=== PATIENT | female | born 1945 | race Caucasian/White ===

== ENCOUNTER 2017-01-09 09:42 | Emergency (ER) | payer MEDICARE, BC ==
[2016-01-24 10:00] VITALS: BMI 35.0
[~2017-01-09 09:42] MED LIST: ADVIL200 MG PO; COREG PO; COREG12.5 MG PO; COUMADIN5 MG PO; GABAPENTIN PO; GLYBURIDE5 M1; GLYBURIDE5 M1 PO; HCTZ PO; HYDROCHLOROTHIA25 MG PO; MULTIPLE VITAMI1 TA1 PO; NEURONTIN 300300 MG PO; OMEPRAZOLE20 M1 PO; TRAMADOL PO; ULTRAM50 MG PO
== END 2017-01-09 11:36 | disposition home or self-care (01) ==
LOC: D.ER 09:42
DX: K59.00 Constipation, unspecified (principal); K56.41 Fecal impaction; K61.0 Anal abscess; R10.9 Unspecified abdominal pain

== ENCOUNTER → 2017-01-26 11:30 | Outpatient (CLI) | payer MEDICARE, BC ==
[2016-01-24 10:00] VITALS: BMI 35.0
== END | disposition home or self-care (01) ==
LOC: D.NM 11:30
DX: K92.2 Gastrointestinal hemorrhage, unspecified (principal)

== ENCOUNTER 2017-02-15 08:03 | Emergency (ER) | payer MEDICARE, BC ==
[2016-01-24 10:00] VITALS: BMI 35.0
[2017-02-15 08:43] LABS: BASOPHILS 0.3 % (0-2); EOSINOPHILS 2.1 % (0-7); HEMOGLOBIN 11.6 g/dL (12-16); IMMATURE GRANULOCYTES 0.3 % (0-5); LYMPHOCYTES 20.7 % (15-50); MCH 30.2 pg (26.0-34.0); MCHC 33.1 g/dL (31.0-37.0); MCV 91.1 fL (80.0-100.0); MEAN PLATELET VOLUME 9.7 fL (7.4-10.4); NEUTROPHILS 67.6 % (40-80); RBC 3.84 10x6/uL (4.00-5.40); RDW 13.2 % (11.5-14.5); WBC 13.1 10x3/uL (4.8-10.8)
[2017-02-15 08:56] LABS: PLATELET COUNT 725 10x3/uL (130-400)
[2017-02-15 08:58] LABS: INR 1.81 (0.85-1.17); PROTIME 20.9 SECONDS (11.6-15.0)
[2017-02-15 09:09] LABS: ALKALINE PHOSPHATASE 44 U/L (46-116); ALT (SGPT) 17 U/L (10-68); BILIRUBIN - TOTAL 0.32 mg/dL (0.2-1.3); CALC OSMOLALITY 265 mosm/kg (275-300); CALCIUM 8.3 mg/dL (8.5-10.1); CARBON DIOXIDE 31.6 mmol/L (21.0-32.0); CHLORIDE - SERUM 93 mmol/L (98-107); CREATININE - SERUM 1.1 mg/dL (0.6-1.3); GLUCOSE 136 mg/dL (74-106); POTASSIUM - SERUM 3.8 mmol/L (3.5-5.1); PROTEIN - SERUM 7.4 g/dL (6.4-8.2); SODIUM 130 mmol/L (136-145); UREA NITROGEN 21 mg/dL (7-18); eGFR NON AFRICAN AMERICAN 52 mL/min (90-120)
[2017-02-15 09:12] LABS: CREATINE KINASE 45 UL (21-215); TROPONIN-I < 0.017 ng/mL (0.000-0.060)
[2017-02-15 10:33] LABS: APPEARANCE CLEAR (CLEAR); BILIRUBIN NEGATIVE (NEGATIVE); COLOR YELLOW (YELLOW); GLUCOSE NEGATIVE (NEGATIVE); KETONE NEGATIVE (NEGATIVE); LEUKOCYTE ESTERASE TRACE (NEGATIVE); NITRITE NEGATIVE (NEGATIVE); PROTEIN NEGATIVE (NEGATIVE); UROBILINOGEN NORMAL (NORMAL)
[2017-02-15 10:34] LABS: BACTERIA FEW /hpf (NONE SEEN); EPITHELIAL CELLS 0-5 /hpf (0-5); MUCUS <1+ /lpf (NONE SEEN); WHITE CELLS - URINE OCC /hpf (0-5)
== END 2017-02-15 11:00 | disposition home or self-care (01) ==
LOC: D.ER 08:03
PROVIDERS: Emergency Medicine
DX: R42 Dizziness and giddiness (principal); I95.9 Hypotension, unspecified; I44.7 Left bundle-branch block, unspecified

== ENCOUNTER 2017-08-09 11:39 | Day surgery (SDC) | payer MEDICARE, BC ==
--- NOTE | ~2017-08-09 | OP ---
PATIENT NAME: ÁNGEL BABCOCK MEDICAL RECORD: [id number] :43 LOCATION:[facility] ADMISSION DATE: SURGEON: NATALIE MILES DO DATE OF OPERATION: 08/09/2017 PROCEDURE: Colonoscopy. INDICATION FOR PROCEDURE: Family history positive for colon cancer in the patient's mother; one time occurrence of hematochezia; and lower abdominal pain, which has resolved. SCOPE: Olympus video pediatric colonoscope. MEDICATIONS: Propofol 350 mg IV per anesthesia. ESTIMATED BLOOD LOSS: None. COMPLICATIONS: None. WITHDRAWAL TIME: Greater than 15 minutes. FINDINGS: Informed consent was given. The patient was made comfortable with the above medication. After reaching an adequate level of sedation by slow IV push, the patient was placed on her left side. A digital rectal examination was performed and was normal. The endoscope was then advanced under direct visualization through the rectum to the cecum with visualization of the appendiceal orifice and the ileocecal valve. The endoscope was slowly withdrawn and mucosa was carefully examined. There were multiple diverticula of mixed type and moderate severity involving descending and sigmoid colon. Retroflexion was performed in the rectum with grade I internal hemorrhoids without active bleeding. There were no polyps visualized on today's examination. IMPRESSION: 1. Moderate diverticulosis of the left side of the colon. 2. Grade I internal hemorrhoids. PLAN AND RECOMMENDATIONS: 1. Discharge home when recovery parameters are met. 2. High-fiber diet. 3. Continue current medications. 4. No recall colonoscopies are necessary based on the patient's age and risk of sedation with her other comorbidities. TRANSINT:[id number] Voice Confirmation ID: [id number] DOCUMENT ID: [id number] NATALIE MILES DO at 0852 CC: [id number] DICTATION DATE: 08/09/17 1512 ABSORPTION PLANT OPERATOR HELPER: 08/09/17 1548 [facility] 08/09/17 [facility] [address] [place] [id number]
[2017-08-09 12:54] LABS: INR 1.2 (0.85-1.17); PROTIME 14.7 SECONDS (11.6-15.0)
[2017-08-09 13:15] VITALS: BP 149/68
== END 2017-08-09 16:40 | disposition home or self-care (01) ==
LOC: D.OPS 11:39
PROVIDERS: Anesthesiology
DX: K92.1 Melena (principal); K57.90 Diverticulosis of intestine, part unspecified, without perforation or abscess without bleeding; Z80.0 Family history of malignant neoplasm of digestive organs; K21.9 Gastro-esophageal reflux disease without esophagitis; J45.909 Unspecified asthma, uncomplicated; I10 Essential (primary) hypertension; E11.9 Type 2 diabetes mellitus without complications; I50.9 Heart failure, unspecified; Z01.812 Encounter for preprocedural laboratory examination

== ENCOUNTER 2018-01-07 14:47 | Inpatient (IN) | payer MEDICARE, BC ==
[~2018-01-07] VITALS: Ht 165.1 cm; Wt 73.1 kg
--- NOTE | ~2018-01-07 | EC ---
PATIENT:ÁNGEL BABCOCK DATE OF SERVICE: 01/08/18 SEX: F MEDICAL RECORD: [id number] DATE OF : 43 LOCATION:D.[facility] AGE OF PATIENT: 72 ADMISSION DATE: 01/08/18 REFERRING PHYSICIAN: INTERPRETING PHYSICIAN: LUIS ADKINS MD ECHOCARDIOGRAM REPORT ECHO CHARGES 4 ECHO COMPLETE Date: 01/08 CLINICAL DIAGNOSIS: AFIB, NEW ONSET, SYNCOPE ECHOCARDIOGRAPHIC MEASUREMENTS (adult normal given) AC root (d.<3.7cm) 3.0 cm LV Septum d (<1.2 cm> 1.6 cm Valve Excursion 1.5 cm LV Septum (systole) 2.0 cm Left Atria (s.<4.0cm> 4.4 cm LVPW d(<1.2cm) 1.7 cm RV (d.<2.3cm) 3.7 cm LVPW (sytole) 1.9 cm LV diastole(<5.6CM) 5.0 cm MV E-F(>70mm/sec) cm LV systole 3.4 cm LVOT Diameter 2.0 cm MV exc.(>10mm) 1.3 cm Est.ejection fraction (50-75%) % DOPPLER: LVIT cm/sec A 141 cm/sec E cm/sec LA cm/sec RVSP 32 mmHg LVOT 118 cm/sec AOP1/2T m/s Asc. Ao 159 cm/sec RVOT 140 cm/sec RA cm/sec PA 156 cm/sec AV Gradient Peak 10.06mmHg AV Mean 5.63 mmHg AV Area 2.6 cm MV Gradient Peak 8.73 mmHg MV Mean 4.22 mmHg MV Area cm COMMENTS: Metal Baler: 2 RUBEN ESPINOZA Oceanic Sciences Professor: 3 Dr. Pandey TAPE# PACS Pericardial Effusion N DATE OF SERVICE: Adequate 2D echo, color flow, spectral Doppler, M-mode LVH present. LV internal dimension are normal. LV is somewhat hyperdynamic with EF 60% or better. Aortic valve tricuspid. No aortic stenosis by Doppler interrogation. Left atrium dilated at 4.4 cm. Kate valve showed no prolapse. Mild MR. Right sided chambers are normal. Trace TR. TRANSINT:[id number] Voice Confirmation ID: [id number] DOCUMENT ID: [id number] ECHOCARDIOGRAM REPORT [id number] ÁNGEL BABCOCK LUIS ADKINS MD at 1117 CC: [id number] DICTATION DATE: 01/08/18 1645 NUTS AND BOLTS ASSEMBLER: 01/09/18 0131 ADM IN [place] [id number] [place] [id number]
--- NOTE | ~2018-01-07 | CN ---
PATIENT NAME:ÁNGEL BABCOCK MEDICAL RECORD: [id number] : 43 LOCATION:D.MS [facility] ADMIT DATE: 01/08/18 ACCOUNT: [id number] CONSULTING PHYSICIAN: LUIS ADKINS MD REFERRING PHYSICIAN: PARIS BEVERLY MD DATE OF CONSULTATION: 01/08/2018 HISTORY OF PRESENT ILLNESS: A pleasant 72-year-old female with known cardiovascular history. She has a remote history of a blood clot lung, actually on Coumadin for prophylaxis. INR has been quite stable. Has been feeling bad for the past 3-4 days, had a fall at home due to proximal muscle weakness. Typically is quite active. Has a known history of coronary artery disease with a remote history of stenting. MEDICATIONS: Home medications typically include Benadryl 25 at bedtime, albuterol 2 puffs q.4, warfarin per scale, carvedilol 12.5 b.i.d., Neurontin 300 t.i.d., tramadol 50 every day, Glyburide 5 mg p.o. every day. SOCIAL HISTORY: Nonsmoker, nondrinker. She takes care of all ADLs. REVIEW OF SYSTEMS: The patient reports easy bruising but reports no swollen glands. The patient reports no fever, no night sweats, no significant weight gain, no significant weight loss. No significant exercise tolerance. The patient reports no dry eyes, no irritation, no vision change. Patient reports no difficulty hearing and no ear pain. Patient reports no frequent nose bleeds or nose and sinus problems. Patient reports on arm pain on exertion. No shortness of breath while lying down. No history of heart murmur. Patient reports no cough, no wheezing or coughing up blood. Patient reports no abdominal pain, no vomiting. Normal appetite. No diarrhea and not vomiting blood. No nausea and no constipation. Patient reports no incontinence. No difficulty urinating. No hematuria. No increased frequency. Patient reports no muscle aches. No weakness, no arthralgias, no back pain. No swelling of the extremities. Patient reports no abnormal mole, no jaundice, no rashes. Reports no loss of consciousness. No weakness and no numbness. No seizures, dizziness, or headaches. The patient reports no depression, no sleep disturbance, feeling safe in a relationship and no alcohol abuse. Patient reports on fatigue. Reports no runny nose or sinus pressure. No itching, no hives, and no frequent sneezing. PHYSICAL EXAMINATION: GENERAL: Pleasant female in no acute distress. VITAL SIGNS: Blood pressure 137/77, pulse 113 and irregular. HEENT: Normocephalic, atraumatic. HEART: Irregular, slightly tachycardic, II/ systolic ejection murmur. LUNGS: Good air excursion. ABDOMEN: Soft, nontender. EXTREMITIES: Pulses well preserved, 2+ with no edema. NEUROLOGIC: Grossly intact. IMPRESSION: Hyperthyroidism, muscle weakness. Given rates, we will add digoxin for hopefully better rate control. This should improve as thyroid levels are adjusted. Check echocardiographic study. Further recommendations based on the above. TRANSINT:[id number] Voice Confirmation ID: [id number] DOCUMENT ID: [id number] CONSULT REPORT [id number] ÁNGEL BABCOCK,LUIS Nieves MD at 1117 CC: [id number] DICTATION DATE: 01/08/18 1350 PASTRY DECORATOR: 01/08/18 1552 ADM IN [place] [address] [place] [address]
--- NOTE | ~2018-01-07 | CN ---
PATIENT NAME:ÁNGEL VALLADARES MEDICAL RECORD: [id number] : 43 LOCATION:D.MS [facility] ADMIT DATE: 01/08/18 ACCOUNT: [id number] CONSULTING PHYSICIAN: KALEY DE DIOS MD REFERRING PHYSICIAN: PARIS BEVERLY MD DATE OF CONSULTATION: 01/10/[address] Antunez. REASON FOR THE CONSULT: Hyperthyroidism. HISTORY: Ms. Valladares is a 72-year-old female. She was admitted after a syncopal episode. She complains of basically feeling malaise, decreased appetite, jittery feeling with some palpitations, especially severe over the past week. She has had some symptoms before that. She has lost about 30 pounds over the past year, going up and down, but really actively trying to lose weight, but really her significant systemic symptoms started roughly a week or so ago where she can say she definitely started feeling worse. She was admitted and found to have a TSH of 0. PAST MEDICAL HISTORY: Includes neuropathy, coronary artery disease, diabetes, pancreatic pseudocyst, hypertension, history of pulmonary embolism in 2011. PAST SURGICAL HISTORY: Includes hysterectomy, cataract surgery, cardiac stents, cholecystectomy, splenectomy, bilateral knee replacements. ALLERGIES: No known drug allergies. MEDICATIONS: Include Coumadin, Prilosec, carvedilol, gabapentin, glyburide, tramadol. FAMILY HISTORY: She does have a mother that had a goiter and she knows that she was treated with iodine at some point. She had a grandmother with a goiter and a daughter with possibly a thyroid cancer. PHYSICAL EXAMINATION: GENERAL: She is healthy appearing. FACE: Normal, symmetric, no lesions. EYES: Sclerae and conjunctivae are normal. EARS: Canals and TMs are normal. NOSE: No mass, polyps or drainage. ORAL CAVITY AND OROPHARYNX: Tongue protrudes in midline. Pharynx is normal. Mucous membranes are moist. NECK: No masses. No adenopathy. Slightly enlarged thyroid. I did not feel like there is a dominant nodule, but maybe a little nodularity bilaterally to the thyroid. Overall, it is a small goiter. It is nontender. VITAL SIGNS: Heart rate when I examined her was about 120 resting. She has generally been mildly hypertensive with elevated heart rate. LABORATORY AND RADIOLOGIC DATA: Her ultrasound of the thyroid showed multiple thyroid nodules, basically about 3, largest nodule is about 1.5 cm in average size. No dominant nodules on both sides. Her TSH was reportedly 0.00, undetectable, although I cannot find it in the lab records. That may have been done as an outpatient. 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 Thyroid is nontender. Most likely, she has Graves disease. I will order thyroid antibodies and go ahead and start her on methimazole 10 mg 3 times a day. Try to get her under control quickly. She may need some beta-blockers as well. She has coronary artery disease. Her heart rate is high, but she is not having any real chest symptoms, but need to get her heart rate to calm down and avoid any cardiovascular complications. After that is a little bit better, methimazole can probably be dropped to 5 mg t.i.d. In a few months when she is stable, her TSH comes up a little bit, becomes detectable, she can probably be referred to endocrinology for radioactive iodine ablation if it looks like she has Graves. If it does not, we can scan her and check for a hot nodule, but given her ultrasound findings, I do not think that is likely. Could consider hemithyroidectomy. TRANSINT:[id number] Voice Confirmation ID: [id number] DOCUMENT ID: [id number] KALEY DE DIOS MD at 1418 CC: [id number] DICTATION DATE: 01/12/18 1238 LITIGATION MANAGER: 01/12/18 1412 DIS IN 01/12/18 [place] [id number] [place] [address]
[2018-01-07] MEDS ORDERED: BENADRYL25 MG PO (14:54)
[2018-01-07] MEDS ORDERED: BACLOFEN20 M1 PO (14:54)
[2018-01-07 16:25] LABS: BASOPHILS 0.2 % (0-2); HEMOGLOBIN 14.3 g/dL (12-16); IMMATURE GRANULOCYTES 0.7 % (0-5); LYMPHOCYTES 10.3 % (15-50); MCH 29.3 pg (26.0-34.0); MCV 86.1 fL (80.0-100.0); MEAN PLATELET VOLUME 10.3 fL (7.4-10.4); MONOCYTES 9.7 % (2-11); NEUTROPHILS 78.1 % (40-80); RBC 4.88 10x6/uL (4.00-5.40); RDW 13.9 % (11.5-14.5); WBC 18.5 10x3/uL (4.8-10.8)
[2018-01-07 16:29] LABS: PLATELET COUNT 494 10x3/uL (130-400)
[2018-01-07 17:07] LABS: APPEARANCE CLEAR (CLEAR); BILIRUBIN NEGATIVE (NEGATIVE); COLOR YELLOW (YELLOW); GLUCOSE NEGATIVE (NEGATIVE); KETONE NEGATIVE (NEGATIVE); NITRITE NEGATIVE (NEGATIVE); PROTEIN NEGATIVE (NEGATIVE); SPECIFIC GRAVITY 1.015 (1.005-1.020); UROBILINOGEN NORMAL (NORMAL)
[2018-01-07 17:08] LABS: BACTERIA FEW /hpf (NONE SEEN); EPITHELIAL CELLS 0-5 /hpf (0-5); RED CELLS - URINE 0-5 /hpf (0-5); WHITE CELLS - URINE 0-5 /hpf (0-5)
[2018-01-07 17:25] LABS: ALBUMIN 2.8 g/dL (3.4-5.0); ALKALINE PHOSPHATASE 77 U/L (46-116); ALT (SGPT) 22 U/L (10-68); BILIRUBIN - TOTAL 0.44 mg/dL (0.2-1.3); CALC OSMOLALITY 268 mosm/kg (275-300); CALCIUM 9.6 mg/dL (8.5-10.1); CARBON DIOXIDE 27.7 mmol/L (21.0-32.0); CHLORIDE - SERUM 94 mmol/L (98-107); CREATININE - SERUM 0.8 mg/dL (0.6-1.3); GLUCOSE 129 mg/dL (74-106); POTASSIUM - SERUM 4.9 mmol/L (3.5-5.1); PROTEIN - SERUM 7.1 g/dL (6.4-8.2); SODIUM 130 mmol/L (136-145); UREA NITROGEN 30 mg/dL (7-18); eGFR NON AFRICAN AMERICAN 74 mL/min (90-120)
[2018-01-07 17:36] LABS: CKMB 1.5 U/L (0.0-3.6); CREATINE KINASE 38 UL (21-215)
[2018-01-07 17:38] LABS: TROPONIN-I < 0.017 ng/mL (0.000-0.060)
[2018-01-07 17:43] LABS: APTT 63.7 SECONDS (22.8-39.4)
[2018-01-07 17:46] LABS: PROTIME 59.2 SECONDS (11.6-15.0)
[2018-01-07 19:58] LABS: T4 THYROXIN - FREE 4.59 ng/dL (0.76-1.46)
[2018-01-07] MEDS ORDERED: ACETAMINOPHEN500 M1 PO (21:08)
[2018-01-07 21:12] VITALS: BP 148/64; BMI 26.8
[2018-01-07] MEDS ORDERED: PROVENTIL HFA6.7 GM INH (21:17)
[2018-01-08] VITALS: BP 137/60
[2018-01-08 04:00] VITALS: BP 130/78
[2018-01-08 05:40] LABS: BASOPHILS 0.5 % (0-2); EOSINOPHILS 3.1 % (0-7); HEMATOCRIT 39.5 % (36.0-48.0); HEMOGLOBIN 13.5 g/dL (12-16); IMMATURE GRANULOCYTES 0.3 % (0-5); LYMPHOCYTES 29.4 % (15-50); MCH 28.9 pg (26.0-34.0); MCHC 34.2 g/dL (31.0-37.0); MCV 84.6 fL (80.0-100.0); MEAN PLATELET VOLUME 10.5 fL (7.4-10.4); MONOCYTES 16.5 % (2-11); NEUTROPHILS 50.2 % (40-80); PLATELET COUNT 512 10x3/uL (130-400); RBC 4.67 10x6/uL (4.00-5.40); RDW 13.9 % (11.5-14.5)
[2018-01-08 05:45] LABS: WBC 11.8 10x3/uL (4.8-10.8)
[2018-01-08 06:21] LABS: INR 2.09 (0.85-1.17); PROTIME 22.9 SECONDS (11.6-15.0)
[2018-01-08 06:32] LABS: CALC OSMOLALITY 268 mosm/kg (275-300); CALCIUM 9.1 mg/dL (8.5-10.1); CARBON DIOXIDE 24.7 mmol/L (21.0-32.0); CHLORIDE - SERUM 97 mmol/L (98-107); CKMB 0.9 U/L (0.0-3.6); CREATINE KINASE 27 UL (21-215); CREATININE - SERUM 0.8 mg/dL (0.6-1.3); GLUCOSE 142 mg/dL (74-106); POTASSIUM - SERUM 4.3 mmol/L (3.5-5.1); SODIUM 131 mmol/L (136-145); TROPONIN-I 0.016 ng/mL (0.000-0.060); UREA NITROGEN 24 mg/dL (7-18); eGFR NON AFRICAN AMERICAN 74 mL/min (90-120)
[2018-01-08 07:48] VITALS: BP 153/75
[2018-01-08 11:32] VITALS: Ht 165.1 cm; Wt 73.1 kg
[2018-01-08 12:08] VITALS: BP 134/77
[2018-01-08 15:20] VITALS: BP 129/58
[2018-01-08 20:00] VITALS: BP 122/50
[2018-01-09] VITALS: BP 148/60
[2018-01-09 04:00] VITALS: BP 131/69
[2018-01-09 05:38] LABS: BASOPHILS 0.5 % (0-2); EOSINOPHILS 3.3 % (0-7); HEMATOCRIT 36.5 % (36.0-48.0); HEMOGLOBIN 12.3 g/dL (12-16); IMMATURE GRANULOCYTES 0.4 % (0-5); LYMPHOCYTES 23.8 % (15-50); MCH 28.8 pg (26.0-34.0); MCHC 33.7 g/dL (31.0-37.0); MCV 85.5 fL (80.0-100.0); MEAN PLATELET VOLUME 10.1 fL (7.4-10.4); MONOCYTES 14.8 % (2-11); NEUTROPHILS 57.2 % (40-80); PLATELET COUNT 570 10x3/uL (130-400); RBC 4.27 10x6/uL (4.00-5.40); RDW 13.8 % (11.5-14.5); WBC 12.4 10x3/uL (4.8-10.8)
[2018-01-09 05:50] LABS: CALC OSMOLALITY 269 mosm/kg (275-300); CALCIUM 8.8 mg/dL (8.5-10.1); CARBON DIOXIDE 25.6 mmol/L (21.0-32.0); CHLORIDE - SERUM 100 mmol/L (98-107); CREATININE - SERUM 0.6 mg/dL (0.6-1.3); GLUCOSE 124 mg/dL (74-106); POTASSIUM - SERUM 4.2 mmol/L (3.5-5.1); SODIUM 134 mmol/L (136-145); eGFR NON AFRICAN AMERICAN > 90 mL/min (90-120)
[2018-01-09 05:52] LABS: UREA NITROGEN 15 mg/dL (7-18)
[2018-01-09 06:05] LABS: INR 1.3 (0.85-1.17); PROTIME 15.7 SECONDS (11.6-15.0)
[2018-01-09 07:45] VITALS: BP 139/67
[2018-01-09 12:07] VITALS: BP 123/54
[2018-01-09 15:29] VITALS: BP 137/65
[2018-01-09 20:08] VITALS: BP 122/73
[2018-01-10] VITALS (8 sets, daily range): BP systolic 120–147; BP diastolic 45–71
[2018-01-11 04:00] VITALS: BP 114/64
[2018-01-11 07:11] LABS: BASOPHILS 0.4 % (0-2); EOSINOPHILS 2.7 % (0-7); HEMATOCRIT 36.7 % (36.0-48.0); HEMOGLOBIN 12.2 g/dL (12-16); IMMATURE GRANULOCYTES 0.4 % (0-5); LYMPHOCYTES 23.5 % (15-50); MCH 28.6 pg (26.0-34.0); MCHC 33.2 g/dL (31.0-37.0); MCV 86.2 fL (80.0-100.0); MEAN PLATELET VOLUME 10.7 fL (7.4-10.4); MONOCYTES 12.5 % (2-11); NEUTROPHILS 60.5 % (40-80); PLATELET COUNT 607 10x3/uL (130-400); RBC 4.26 10x6/uL (4.00-5.40); RDW 14.2 % (11.5-14.5); WBC 14.8 10x3/uL (4.8-10.8)
[2018-01-11 07:30] LABS: INR 1.55 (0.85-1.17); PROTIME 18.1 SECONDS (11.6-15.0)
[2018-01-11 07:35] LABS: CALC OSMOLALITY 270 mosm/kg (275-300); CALCIUM 9.1 mg/dL (8.5-10.1); CARBON DIOXIDE 28.5 mmol/L (21.0-32.0); CHLORIDE - SERUM 98 mmol/L (98-107); CREATININE - SERUM 0.7 mg/dL (0.6-1.3); GLUCOSE 118 mg/dL (74-106); POTASSIUM - SERUM 4.1 mmol/L (3.5-5.1); SODIUM 134 mmol/L (136-145); UREA NITROGEN 18 mg/dL (7-18); eGFR NON AFRICAN AMERICAN 87 mL/min (90-120)
[2018-01-11 08:16] VITALS: BP 110/48
[2018-01-11 11:56] VITALS: BP 110/62
[2018-01-11 15:24] LABS: THYROGLOBULIN ANTIBODY 40.3 IU/mL (0.0-0.9)
[2018-01-11 16:28] VITALS: BP 106/60
[2018-01-11 20:23] VITALS: BP 152/89
[2018-01-12 04:00] VITALS: BP 111/61
[2018-01-12 07:57] LABS: BASOPHILS 0.2 % (0-2); EOSINOPHILS 3.2 % (0-7); HEMATOCRIT 36.5 % (36.0-48.0); HEMOGLOBIN 12.1 g/dL (12-16); IMMATURE GRANULOCYTES 0.3 % (0-5); LYMPHOCYTES 27.1 % (15-50); MCH 28.5 pg (26.0-34.0); MCHC 33.2 g/dL (31.0-37.0); MCV 86.1 fL (80.0-100.0); MEAN PLATELET VOLUME 10.5 fL (7.4-10.4); MONOCYTES 13.6 % (2-11); NEUTROPHILS 55.6 % (40-80); PLATELET COUNT 621 10x3/uL (130-400); RBC 4.24 10x6/uL (4.00-5.40); RDW 14.2 % (11.5-14.5)
[2018-01-12 08:10] LABS: CARBON DIOXIDE 27.1 mmol/L (21.0-32.0); CREATININE - SERUM 0.8 mg/dL (0.6-1.3); POTASSIUM - SERUM 4.1 mmol/L (3.5-5.1)
[2018-01-12 08:41] LABS: PROTIME 22.3 SECONDS (11.6-15.0)
[2018-01-12 08:42] LABS: INR 2.02 (0.85-1.17)
[2018-01-12 08:43] VITALS: BP 106/58
[2018-01-12 12:08] VITALS: BP 137/77
[2018-01-12] MEDS ORDERED: COUMADIN5 MG PO (14:43)
[2018-01-12] MEDS ORDERED: COUMADIN2.5 MG PO (14:44)
[2018-01-12] MEDS ORDERED: TAPAZOLE 5 MG TA5 MG PO (14:45)
[2018-01-12] MEDS ORDERED: LANOXIN125 MCG PO (14:46)
[2018-01-12 16:23] VITALS: BP 113/58
== END 2018-01-12 17:45 | disposition home or self-care (01) | DRG 312 ==
LOC: D.ER 14:47 → D.MS 19:11 → OBSVTIME 19:11 → D.MS 01-08 19:05
PROVIDERS: Family Medicine; Otolaryngology
DX: R55 Syncope and collapse (principal); D68.9 Coagulation defect, unspecified; M62.81 Muscle weakness (generalized); T45.515A Adverse effect of anticoagulants, initial encounter; I48.91 Unspecified atrial fibrillation; E05.90 Thyrotoxicosis, unspecified without thyrotoxic crisis or storm; I25.10 Atherosclerotic heart disease of native coronary artery without angina pectoris; Z86.711 Personal history of pulmonary embolism; Z79.01 Long term (current) use of anticoagulants; E11.40 Type 2 diabetes mellitus with diabetic neuropathy, unspecified; F17.200 Nicotine dependence, unspecified, uncomplicated

== ENCOUNTER → 2018-04-27 11:41 | Outpatient (CLI) | payer MEDICARE, BC ==
[2018-01-08 11:32] VITALS: BMI 26.8
[~2018-04-27 11:41] MED LIST changes: +ACETAMINOPHEN500 M1 PO; +BACLOFEN20 M1 PO; +BENADRYL25 MG PO; +COUMADIN2.5 MG PO; +LANOXIN125 MCG PO; +PROVENTIL HFA6.7 GM INH; +TAPAZOLE 5 MG TA5 MG PO
== END | disposition home or self-care (01) ==
LOC: D.MAMMO 11:41
DX: Z12.31 Encounter for screening mammogram for malignant neoplasm of breast (principal)

== ENCOUNTER → 2018-06-01 19:09 | Outpatient (CLI) | payer MEDICARE, BC ==
[2018-01-08 11:32] VITALS: BMI 26.8
== END | disposition home or self-care (01) ==
LOC: D.MAMMO 15:00
DX: R92.8 Other abnormal and inconclusive findings on diagnostic imaging of breast (principal)

== ENCOUNTER 2018-08-18 08:05 | Inpatient (IN) | payer MEDICARE, BC ==
[~2018-08-18] VITALS: Ht 165.1 cm; Wt 86.2 kg
--- NOTE | 2018-08-18 08:58 | NUR ---
POSITIVE INFLUENZA A. EDP NOTIFIED.
[2018-08-18 09:10] LABS: BASOPHILS 0.8 % (0-2); EOSINOPHILS 0.1 % (0-7); HEMATOCRIT 41.2 % (36.0-48.0); HEMOGLOBIN 13.6 g/dL (12-16); IMMATURE GRANULOCYTES 0.3 % (0-5); MCH 30.9 pg (26.0-34.0); MCV 93.6 fL (80.0-100.0); MEAN PLATELET VOLUME 9.9 fL (7.4-10.4); MONOCYTES 10.6 % (2-11); NEUTROPHILS 74.2 % (40-80); PLATELET COUNT 416 10x3/uL (130-400); WBC 15.7 10x3/uL (4.8-10.8)
[2018-08-18 09:16] LABS: APTT 34.8 SECONDS (22.8-39.4); INR 1.44 (0.85-1.17)
[2018-08-18 09:19] LABS: ALBUMIN 3.6 g/dL (3.4-5.0); ALKALINE PHOSPHATASE 74 U/L (46-116); ALT (SGPT) 19 U/L (10-68); BILIRUBIN - TOTAL 0.34 mg/dL (0.2-1.3); CALC OSMOLALITY 272 mosm/kg (275-300); CALCIUM 8.9 mg/dL (8.5-10.1); CARBON DIOXIDE 28.1 mmol/L (21.0-32.0); CHLORIDE - SERUM 95 mmol/L (98-107); CREATININE - SERUM 1.5 mg/dL (0.6-1.3); POTASSIUM - SERUM 4.3 mmol/L (3.5-5.1); PROTEIN - SERUM 8.7 g/dL (6.4-8.2); SODIUM 132 mmol/L (136-145); UREA NITROGEN 27 mg/dL (7-18); eGFR NON AFRICAN AMERICAN 36 mL/min (90-120)
[2018-08-18 09:20] LABS: GLUCOSE 153 mg/dL (74-106)
[2018-08-18 09:29] LABS: CKMB 0.4 U/L (0.0-3.6); CREATINE KINASE 54 UL (21-215); TROPONIN-I < 0.017 ng/mL (0.000-0.060)
[2018-08-18 11:26] LABS: APPEARANCE CLEAR (CLEAR); BILIRUBIN NEGATIVE (NEGATIVE); COLOR YELLOW (YELLOW); GLUCOSE NEGATIVE (NEGATIVE); KETONE NEGATIVE (NEGATIVE); NITRITE NEGATIVE (NEGATIVE); PROTEIN 1+ mg/dL (NEGATIVE); SPECIFIC GRAVITY 1.015 (1.005-1.020); UROBILINOGEN NORMAL (NORMAL)
[2018-08-18 11:27] LABS: BACTERIA MODERATE /hpf (NONE SEEN); EPITHELIAL CELLS 0-5 /hpf (0-5); RED CELLS - URINE 0-5 /hpf (0-5); WHITE CELLS - URINE OCC /hpf (0-5)
[2018-08-18 11:28] LABS: MUCUS <1+ /lpf (NONE SEEN)
--- NOTE | 2018-08-18 12:01 | NUR ---
RECIEVED REPORT FROM JEN IN THE ER
--- NOTE | 2018-08-18 12:04 | NUR ---
FSBS 118.
[2018-08-18 12:28] VITALS: BP 151/71
[2018-08-18 14:33] VITALS: BMI 31.6
[2018-08-18 14:42] VITALS: BP 166/63
--- NOTE | 2018-08-18 15:19 | NUR ---
SCD'S APPLIED BILATERALLY AT THIS TIME
--- NOTE | 2018-08-18 19:35 | NUR ---
SHIFT REPORT COMPLETED. RESUMING PT CARE. PT IS ALERT LAYING IN BED NO C/O VOICED AT THIS TIME. PT HAS A IV IN THE RIGHT WRIST THAT IS SALINE LOCK. PT IS ON DROPLET ISOLATION. BED IN LOW POSITION WITH CALL LIGHT IN REACH. WILL CONTINUE TO MONITOR PT AND FOLLOW PLAN OF CARE.
--- NOTE | 2018-08-18 19:50 | NUR ---
PT SITTING UP IN BED ALERT AND ORIENTED. PT ON DROPLET PERCUATIONS. SCD'S ON BOTH LEGS BILAT. NO S/S OF DISTRESS. PT DENIES ANY PAIN OR NEEDS AT THIS TIME. BED LOW CALL LIGHT WITHIN REACH. WILL CONTINUE TO MONITOR.
[2018-08-18 20:00] VITALS: BP 154/71
--- NOTE | 2018-08-18 22:21 | NUR ---
ASSISTED PT TO BATHROOM. PT TOLERATED WELL. WILL CONTINUE TO MONITOR.
[2018-08-19 00:30] VITALS: BP 155/67
--- NOTE | 2018-08-19 03:24 | NUR ---
PT RESTING IN BED WITH EYES CLOSED. RR EVEN AND UNLABORED. BED LOW CALL LIGHT WITHIN REACH. WILL CONTINUE TO MONITOR.
[2018-08-19 04:00] VITALS: BP 143/70
[2018-08-19 05:13] LABS: BASOPHILS 0.6 % (0-2); EOSINOPHILS 0.3 % (0-7); HEMATOCRIT 38.1 % (36.0-48.0); HEMOGLOBIN 12.2 g/dL (12-16); IMMATURE GRANULOCYTES 0.2 % (0-5); LYMPHOCYTES 23.9 % (15-50); MCH 30.6 pg (26.0-34.0); MCV 95.5 fL (80.0-100.0); MEAN PLATELET VOLUME 10.5 fL (7.4-10.4); MONOCYTES 11.2 % (2-11); NEUTROPHILS 63.8 % (40-80); RBC 3.99 10x6/uL (4.00-5.40); RDW 14.3 % (11.5-14.5); WBC 13.5 10x3/uL (4.8-10.8)
[2018-08-19 05:14] LABS: PLATELET COUNT 328 10x3/uL (130-400)
[2018-08-19 05:47] LABS: INR 1.45 (0.85-1.17); PROTIME 17.1 SECONDS (11.6-15.0)
[2018-08-19 05:57] LABS: ALBUMIN 2.8 g/dL (3.4-5.0); ANION GAP 14.5 mmol/L (8-16); BILIRUBIN - TOTAL 0.37 mg/dL (0.2-1.3); CARBON DIOXIDE 24.3 mmol/L (21.0-32.0); POTASSIUM - SERUM 4.8 mmol/L (3.5-5.1); PROTEIN - SERUM 7.3 g/dL (6.4-8.2)
[2018-08-19 05:58] LABS: CREATININE - SERUM 0.8 mg/dL (0.6-1.3)
--- NOTE | 2018-08-19 07:36 | NUR ---
REPORT RECEIVED. WILL CONTINUE WITH POC. PT CURRENTLY LYING SEMI FOWLERS. CALL LIGHT W/I REACH. PT IS AAO AND UP WITH ASSIST. DROPLET ISO FOR INFLUENZA. RR EVEN AND UNLABORED ON 2L 02. NS INFUSING @125ML/HR VIA R.WRIST PIV. PT DENIES ANY NEEDS AT THIS TIME. NO S/S OF DISTRESS NOTED. WILL CTM.
[2018-08-19 09:46] VITALS: BP 144/71
[2018-08-19 10:48] VITALS: Ht 165.1 cm; Wt 86.2 kg
[2018-08-19 12:00] VITALS: BP 144/68
[2018-08-19 16:08] VITALS: BP 145/83
--- NOTE | 2018-08-19 18:17 | NUR ---
PT CURRENTLY LYING SEMI FOWLERS. CALL LIGHT W/I REACH. PT ASSISTED TO AND FROM TOILET WHERE PT URINATED. RR EVEN AND UNLABORED ON RA. R.WRIST PIV IS SALINE LOCKED. PT DENIES ANY NEEDS AT THIS TIME. NO S/S OF DISTRESS NOTED. WILL PASS REPORT AND CONTINUE WITH POC.
[2018-08-19 20:00] VITALS: BP 149/64
[2018-08-20 00:30] VITALS: BP 164/74
--- NOTE | 2018-08-20 03:06 | NUR ---
Remains on Droplet Precautions, sitting up in bed at this time, denies any pain or discomfort. No voiced concerns. Respirations unlabored.
[2018-08-20 04:30] VITALS: BP 172/67
[2018-08-20 04:34] LABS: BASOPHILS 0.5 % (0-2); EOSINOPHILS 1.4 % (0-7); HEMATOCRIT 36.4 % (36.0-48.0); HEMOGLOBIN 11.7 g/dL (12-16); IMMATURE GRANULOCYTES 0.1 % (0-5); LYMPHOCYTES 30.8 % (15-50); MCH 30.2 pg (26.0-34.0); MCHC 32.1 g/dL (31.0-37.0); MCV 94.1 fL (80.0-100.0); MEAN PLATELET VOLUME 9.9 fL (7.4-10.4); MONOCYTES 11.1 % (2-11); NEUTROPHILS 56.1 % (40-80); PLATELET COUNT 284 10x3/uL (130-400); RBC 3.87 10x6/uL (4.00-5.40); RDW 13.9 % (11.5-14.5)
[2018-08-20 04:43] LABS: ANION GAP 12.7 mmol/L (8-16); CALCIUM 8.5 mg/dL (8.5-10.1); CARBON DIOXIDE 26.4 mmol/L (21.0-32.0); CREATININE - SERUM 0.9 mg/dL (0.6-1.3); POTASSIUM - SERUM 4.1 mmol/L (3.5-5.1)
[2018-08-20 04:44] LABS: INR 1.67 (0.85-1.17)
[2018-08-20 04:48] LABS: WBC 10.1 10x3/uL (4.8-10.8)
[2018-08-20 09:13] VITALS: BP 169/71
[2018-08-20 12:10] VITALS: BP 188/74
[2018-08-20] MEDS ORDERED: TAMIFLU75 MG PO (12:28)
--- NOTE | 2018-08-20 13:34 | NUR ---
[facility] AND CONFIRMED METHIMAZOLE RX-STATES 5 MG BID.
[2018-08-20] MEDS ORDERED: TAPAZOLE 5 MG TA5 MG PO (13:36)
--- NOTE | 2018-08-20 13:50 | NUR ---
PATIENT IS SITTING UP IN BED AND DENIES ANY NEEDS AT THIS TIME.
--- NOTE | 2018-08-20 13:53 | NUR ---
PATIENT HAS BEEN DISCHARGED. SHE IS FEELING MUCH BETTER AND HAS BEEN SITTING UP IN BED. SHE IS CALLING HER DAUGHTER NOW.
--- NOTE | 2018-08-20 14:11 | MORECARE ---
CASE MANAGEMENT DISCHARGE SUMMARY PATIENT: ÁNGEL BABCOCK UNIT: [id number] ADM DATE: 08/18/18 AGE: 73 : 44 SEX: F ROOM/BED: D.2106 AUTHOR: JOVAN GALLEGOS PHYSICIAN: REFERRING PHYSICIAN: PARIS BEVERLY MD DATE OF SERVICE: 08/20/18 Discharge Plan Patient Name: ÁNGEL BABCOCK [facility] [facility] 1945 Planned Disposition: Home Anticipated Discharge Date: 08/20/18 Discharge Date: Expected LOS: 2 Initial Reviewer: [email or web address] Initial Review Date: 08/18/2018 Generated: 08/20/18 3:11 pm Patient Name: ÁNGEL BABCOCK Page [id number] at 1411 All edits/amendments must be made on the electronic document DICTATION DATE: 08/20/18 1411 GO GO DANCER: MELBA 08/20/18 1411 RPT#: [id number] DC DATE: STATUS: ADM IN [facility] [address] [place] [address] END OF REPORT
--- NOTE | 2018-08-20 14:20 | MORECARE ---
CASE MANAGEMENT DISCHARGE SUMMARY PATIENT: ÁNGEL BABCOCK UNIT: [id number] ADM DATE: 08/18/18 AGE: 73 : 44 SEX: F ROOM/BED: D.2106 AUTHOR: JOVAN GALLEGOS PHYSICIAN: REFERRING PHYSICIAN: PARIS BEVERLY MD DATE OF SERVICE: 08/20/18 Discharge Plan Patient Name: ÁNGEL BABCOCK Facility: [facility]:[place] : 1945 Planned Disposition: Home Anticipated Discharge Date: 08/20/18 Discharge Date: Expected LOS: 2 Initial Reviewer: [email or web address] Initial Review Date: 08/18/2018 Generated: 08/20/18 3:19 pm DCPIA - Discharge Planning Initial Assessment Updated by [email or web address]: Pilar Sepulveda on 08/20/18 2:16 pm * Is the patient Alert and Oriented? Yes * How many steps to enter\exit or inside your home? ramp * PCP DR Beverly * Pharm[place] [facility] [place] near [facility] * Preadmission Environment Home with Family * ADLs Independent * Equipment None * Other Equipment N/A * List name and contact numbers for known caregivers / representatives who currently or will assist patient after discharge: Rima Davila- daughter- [phone] * Verbal permission to speak to the caregivers and representatives has been obtained from the patient. No * Community resources currently utilized None * Please name any agencies selected above. N/A * Additional services required to return to the preadmission environment? No * Can the patient safely return to the preadmission environment? Yes * Has this patient been hospitalized within the prior 30 days at any hospital? No Last DP export: 08/20/18 1:11 p Patient Name: ÁNGEL BABCOCK Page [phone] at 1420 All edits/amendments must be made on the electronic document DICTATION DATE: 08/20/181418 GRADE SCHOOL TEACHER: MELBA 08/20/181418 RPT#: [id number] DC DATE: STATUS: ADM IN [facility] [address] [place] [address] END OF REPORT
--- NOTE | 2018-08-20 14:29 | MORECARE ---
CASE MANAGEMENT DISCHARGE SUMMARY PATIENT: ÁNGEL BABCOCK UNIT: [id number] ADM DATE: 08/18/18 AGE: 73 : 44 SEX: F ROOM/BED: D.9186 AUTHOR: EL,DOC PHYSICIAN: REFERRING PHYSICIAN: PARIS BEVERLY MD DATE OF SERVICE: 08/20/18 Discharge Plan Patient Name: ÁNGEL BABCOCK Facility: [facility]:[place] : 1945 Planned Disposition: Home Anticipated Discharge Date: 08/20/18 Discharge Date: Expected LOS: 2 Initial Reviewer: [email or web address] Initial Review Date: 08/18/2018 Generated: 08/20/18 3:29 pm Comments DCP- Discharge Planning Updated by [email or web address]: Pilar Sepulveda on 08/20/18 1:[address] CM MET WITH THE PATIENT AT THE BEDSIDE. EXPLAINED CASE MANAGEMENT AND MY ROLE. PATIENT STATED SHE WAS READY FOR DISCHARGE. SHE HAD ASK HER DR TO BE DISCHARGED. STATES SHE IS FEELING BETTER. HAS NO COMMUNITY OR HOME HEALTH SERVICES. DENIES ANY NEEDS. NO DME. NO NEED FOR DME. IS INDEPENDENT IN CARE. HAS HER DAUGHTER TO ASSIST IF NEEDED. THE DAUGHTER WILL PROVIDE TRANSPORTATION TO HOME. SHE WAS TALKING WITH THE DTR ON THE PHONE WHEN CM ENTERED. HAS A RAMP TO ENTER HER HOME. PHARMACY- [facility] ON [address] NEAR [facility] PCP- DR BEVERLY PLAN FOR DISCHARGE TO HOME THIS AFTERNOON. DISCHARGHE IMM EXPLAINED. NO QUESTIONS OR CONCERNS. COPY TO THE PATIENT. SIGNATURE OBTAINED AND COPY TO THE HARD COVER CHART. DCPIA - Discharge Planning Initial Assessment Updated by [email or web address]: Pilar Sepulveda on 08/20/18 2:16 pm * Is the patient Alert and Oriented? Yes * How many steps to enter\exit or inside your home? ramp * PCP DR Beverly * Pharmacy [facility] [address] near [facility] * Preadmission Environment Home with Family * ADLs Independent * Equipment None * Other Equipment N/A * List name and contact numbers for known caregivers / representatives who currently or will assist patient after discharge: Rima Davila- daughter- [phone] * Verbal permission to speak to the caregivers and representatives has been obtained from the patient. No * Community resources currently utilized None * Please name any agencies selected above. N/A * Additional services required to return to the preadmission environment? No * Can the patient safely return to the preadmission environment? Yes * Has this patient been hospitalized within the prior 30 days at any hospital? No Coverage Notice Reviewer: [email or web address] Daniel Pilar Sepulveda Notice Issued Date-Time: 08/20/2018 13:53 Notice Type: IM Discharge Notice Notice Delivered To: Patient Relationship to Patient: Self Hydraulic Specialist Name: Delivery Method: HAND - Hand Delivered Elizabeth Days: Prior Verbal Notification: Recipient Understood Notice: Yes Recipient Signature: Yes Med Rec Note Co-signed by Attending: Coverage Notice Comment: CM DISCUSSED DISCHARGE IMM. EXPLAINED TO THE PATIENT . SHE UNDERSTOOD. NO QUESTIONS OR CONCERNS. ANXIOUS FOR DISCHARGE TO HOME. COPY TO THE PATIENT AND SIGNED COPY TO THE CHART. Last DP export: 08/20/18 1:20 p Patient Name: ÁNGEL BABCOCK Page [phone] at 1429 All edits/amendments must be made on the electronic document DICTATION DATE: 08/20/18 142 POKER DEALER: MELBA 08/20/18 142 RPT#: [id number] DC DATE: STATUS: ADM IN [facility] [address] [place] [address] END OF REPORT
--- NOTE | 2018-08-20 14:36 | NUR ---
IV REMOVED FROM RIGHT WRIST, CATHETER INTACT. PATIENT TOLERATED. HELD PRESSURE TO STOP BLEEDING. DISCHARGE TEACHING DONE, AND SIGNED. ALL PATIENT BELONGINGS REMOVED FROM THE ROOM. PATIENT IS GOING DOWN BY WHEEL CHAIR. GOING HOME WITH FAMILY.
--- NOTE | 2018-08-22 09:49 | MORECARE ---
CASE MANAGEMENT DISCHARGE SUMMARY PATIENT: ÁNGEL BABCOCK UNIT: [id number] ADM DATE: 08/18/18 AGE: 73 : 44 SEX: F ROOM/BED: D.2106 AUTHOR: EL,DOC PHYSICIAN: REFERRING PHYSICIAN: PARIS BEVERLY MD DATE OF SERVICE: 08/22/18 Discharge Plan Patient Name: ÁNGEL BABCOCK Facility: [facility]:[place] : 1945 Planned Disposition: Home Anticipated Discharge Date: 08/20/18 Discharge Date: 08/20/2018 Expected LOS: 2 Initial Reviewer: [email or web address] Initial Review Date: 08/18/2018 Generated: 08/22/18 10:49 am Comments DCP- Discharge Planning Updated by [email or web address]: Pilar Sepulveda on 08/20/18 1:[address] CM MET WITH THE PATIENT AT THE BEDSIDE. EXPLAINED CASE MANAGEMENT AND MY ROLE. PATIENT STATED SHE WAS READY FOR DISCHARGE. SHE HAD ASK HER DR TO BE DISCHARGED. STATES SHE IS FEELING BETTER. HAS NO COMMUNITY OR HOME HEALTH SERVICES. DENIES ANY NEEDS. NO DME. NO NEED FOR DME. IS INDEPENDENT IN CARE. HAS HER DAUGHTER TO ASSIST IF NEEDED. THE DAUGHTER WILL PROVIDE TRANSPORTATION TO HOME. SHE WAS TALKING WITH THE DTR ON THE PHONE WHEN CM ENTERED. HAS A RAMP TO ENTER HER HOME. PHARMACY- [facility] ON [address] NEAR [facility] PCP- DR BEVERLY PLAN FOR DISCHARGE TO HOME THIS AFTERNOON. DISCHARGHE IMM EXPLAINED. NO QUESTIONS OR CONCERNS. COPY TO THE PATIENT. SIGNATURE OBTAINED AND COPY TO THE HARD COVER CHART. DCPIA - Discharge Planning Initial Assessment Updated by [email or web address]: Pilar Sepulveda on 08/20/18 2:16 pm * Is the patient Alert and Oriented? Yes * How many steps to enter\exit or inside your home? ramp * PCP DR Beverly * Pharmacy [facility] [address] near [facility] * Preadmission Environment Home with Family * ADLs Independent * Equipment None * Other Equipment N/A * List name and contact numbers for known caregivers / representatives who currently or will assist patient after discharge: Rima Davila- daughter- [phone] * Verbal permission to speak to the caregivers and representatives has been obtained from the patient. No * Community resources currently utilized None * Please name any agencies selected above. N/A * Additional services required to return to the preadmission environment? No * Can the patient safely return to the preadmission environment? Yes * Has this patient been hospitalized within the prior 30 days at any hospital? No Coverage Notice Reviewer: [id number] - Pilar Sepulveda Notice Issued Date-Time: 08/20/2018 13:53 Notice Type: IM Discharge Notice Notice Delivered To: Patient Relationship to Patient: Self Field Project Manager Name: Delivery Method: HAND - Hand Delivered Elizabeth Days: Prior Verbal Notification: Recipient Understood Notice: Yes Recipient Signature: Yes Med Rec Note Co-signed by Attending: Coverage Notice Comment: CM DISCUSSED DISCHARGE IMM. EXPLAINED TO THE PATIENT . SHE UNDERSTOOD. NO QUESTIONS OR CONCERNS. ANXIOUS FOR DISCHARGE TO HOME. COPY TO THE PATIENT AND SIGNED COPY TO THE CHART. Last DP export: 08/20/18 1:29 p Patient Name: ÁNGEL BABCOCK Page [phone] at 0949 All edits/amendments must be made on the electronic document DICTATION DATE: 08/22/18948 HYDRAULIC AND PLUMBING INSTALLER: MELBA 08/22/18948 RPT#: [id number] DC DATE:08/20/18 STATUS: DIS IN [facility] [address] [place] [address] END OF REPORT
== END 2018-08-20 14:59 | disposition home or self-care (01) | DRG 194 ==
LOC: D.ER 08:05 → D.EDHOLD 11:14 → D.M2 11:14
PROVIDERS: Family Medicine; ADMIT Family Medicine; ATTEND Family Medicine
DX: J10.1 Influenza due to other identified influenza virus with other respiratory manifestations (principal); E87.1 Hypo-osmolality and hyponatremia; N39.0 Urinary tract infection, site not specified; N28.9 Disorder of kidney and ureter, unspecified; I48.2 Chronic atrial fibrillation; F17.200 Nicotine dependence, unspecified, uncomplicated; E11.9 Type 2 diabetes mellitus without complications; I10 Essential (primary) hypertension; I25.10 Atherosclerotic heart disease of native coronary artery without angina pectoris; I45.4 Nonspecific intraventricular block